=== PATIENT | male | born 1950 | race Caucasian/White ===

== ENCOUNTER → 2016-12-10 | Outpatient (CLI) | payer OTHER ==
[~2016-12-10] MED LIST: OMNIPAQUE 350 MG/ML, 150 ML BOTTLE ONE
== END | disposition home or self-care (01) ==
LOC: CFH 14:47
PROVIDERS: ATTEND Urology
DX: N20.0 Calculus of kidney (principal); N40.0 Benign prostatic hyperplasia without lower urinary tract symptoms; N32.9 Bladder disorder, unspecified; M85.88 Other specified disorders of bone density and structure, other site; M48.56XA Collapsed vertebra, not elsewhere classified, lumbar region, initial encounter for fracture; M48.54XA Collapsed vertebra, not elsewhere classified, thoracic region, initial encounter for fracture
CPT/HCPCS: 74178; 82565; Q9967

== ENCOUNTER 2018-03-10 05:40 | Day surgery (SDC) | payer OTHER ==
[~2018-03-10] VITALS: Ht 170.2 cm; Wt 78.7 kg
[~2018-03-10 05:40] MED LIST changes: +ASCO10004 PO; +ATOR10TA PO; +BENA20TA4 PO; +CALC-229 PO; +CHOL10003 PO; +CYAN1TAB29 PO; -OMNIPAQUE 350 MG/ML, 150 ML BOTTLE ONE; +PANT40TA5 PO; +TRAM50TA2 PO
[2018-03-10] MEDS ORDERED: LACTATED RINGERS 1,000 ML IV SCH (06:21)
[2018-03-10 06:25] VITALS: BP 155/92
[2018-03-10] MEDS ORDERED: BUPIVACAINE/PF-EPI 0.5% 1:200K ONE (06:46)
[2018-03-10] MEDS ORDERED: MIDAZOLAM 1 MG/ML, 2ML ONE (07:11)
[2018-03-10] MEDS ORDERED: ROCURONIUM 10MG/ML,5ML ONE (07:12)
[2018-03-10] MEDS ORDERED: FENTANYL PF 250 MCG/5ML ONE (07:12)
[2018-03-10] MEDS ORDERED: DEXAMETHASONE 4 MG/ML, 1ML ONE ×2 (07:13→07:14)
[2018-03-10] MEDS ORDERED: CEFAZOLIN 1,000 MG ONE ×2 (07:14)
[2018-03-10] MEDS ORDERED: WATER-INJECTION,STERILE 10 ML IV ONE (07:14)
[2018-03-10] MEDS ORDERED: PHENYLEPHRINE 10 MG/ML ONE (07:15)
[2018-03-10] MEDS ORDERED: PROPOFOL 10 MG/ML, 20ML ONE (07:26)
[2018-03-10] MEDS ORDERED: EPINEPHRINE 1 MG/ML, 1ML ONE (07:26)
[2018-03-10] MEDS ORDERED: ONDANSETRON 2MG/ML, 2ML ONE ×2 (07:57)
[2018-03-10] MEDS ORDERED: hydrALAzine 20 MG/ML, 1ML IV PRN (08:00)
[2018-03-10] MEDS ORDERED: HALOPERIDOL 5 MG/ML IV PRN (08:00)
[2018-03-10] MEDS ORDERED: ACETAMINOPHEN 325 MG TABLET PO PRN (08:00)
[2018-03-10] MEDS ORDERED: MEPERIDINE/PF 25MG/0.5ML IVPush PRN (08:00)
[2018-03-10] MEDS ORDERED: LABETALOL 5MG/ML, 20ML IV PRN (08:00)
[2018-03-10] MEDS ORDERED: PROMETHAZINE 25 MG/ML, 1ML IV PRN (08:00)
[2018-03-10] MEDS ORDERED: FENTANYL PF 100 MCG/2ML IV PRN (08:00)
[2018-03-10] MEDS ORDERED: OXYcodone 5 MG/5 ML ORAL.SOL UDC PO PRN (08:00)
[2018-03-10] MEDS ORDERED: HYDROmorphone 1 MG/ML, 1ML IV PRN (08:00)
[2018-03-10] MEDS ORDERED: KETOROLAC 30 MG/1 ML ONE (08:34)
[2018-03-10] MEDS ORDERED: OXYcodone 5 MG/5 ML ORAL.SOL UDC ONE (08:49)
[2018-03-10] MEDS ORDERED: ACETAMINOPHEN 650 MG/20.3 ML UDC ONE (08:49)
[2018-03-10] MEDS ORDERED: FENTANYL PF 100 MCG/2ML ONE (08:49)
[2018-03-11] MEDS ORDERED: CYAN25009 PO (16:57)
[2018-03-11] MEDS ORDERED: TRAZ-137 PO (16:57)
== END 2018-03-10 11:00 | disposition home or self-care (01) ==
LOC: OUT 05:40
PROVIDERS: ATTEND Surgery
DX: K40.30 Unilateral inguinal hernia, with obstruction, without gangrene, not specified as recurrent (principal); I10 Essential (primary) hypertension; F10.21 Alcohol dependence, in remission; K21.9 Gastro-esophageal reflux disease without esophagitis; Z98.890 Other specified postprocedural states; Z87.891 Personal history of nicotine dependence
CPT/HCPCS: 49507; C1781; J0171; J0690; J1100; J1885; J2250; J2370; J2405; J2704; J3010; J7120

== ENCOUNTER 2018-03-11 16:18 | Inpatient (IN) | payer OTHER ==
[~2018-03-11] VITALS: Ht 162.6 cm; Wt 74.9 kg
[2018-03-11] MEDS ORDERED: TRAZ-137 PO (16:57)
[2018-03-11] MEDS ORDERED: CYAN25009 PO (16:57)
[2018-03-11 16:59] LABS: BASOPHILS % (AUTO) 0 % (0-1); EOSINOPHILS % (AUTO) 0 % (1-7); LYMPHOCYTES # (AUTO) 0.74 x10^3/uL (1-3.4); LYMPHOCYTES % (AUTO) 9 % (22-44); MD NO; MEAN CORPUSCULAR VOLUME 94.3 fL (81-97); MEAN PLATELET VOLUME 6.9 fL (7.4-10.4); MONOCYTES # (AUTO) 0.66 x10^3/uL (0.2-0.8); MONOCYTES % (AUTO) 8 % (2-9); NEUTROPHILS # (AUTO) 7.01 x10^3/uL (1.8-6.8); NEUTROPHILS % (AUTO) 83 % (42-75); PLATELET COUNT 215 x10^3/uL (130-400); RED BLOOD COUNT 3.93 x10^6/uL (4.38-5.82); RED CELL DISTRIBUTION WIDTH 13.8 % (9.4-14.8)
[2018-03-11] MEDS ORDERED: SODIUM CHLORIDE 0.9% 1,000ML IVBOLUS ONE ×3 (17:00→20:00)
[2018-03-11] MEDS ORDERED: SODIUM CHLORIDE FLUSH 10ML SYR IVF ONE ×2 (17:00)
[2018-03-11 17:12] LABS: ALANINE AMINOTRANSFERASE 15 U/L (12-78); ALBUMIN 3.2 g/dL (3.4-5.0); ANION GAP 12 mmol/L (5-15); CALCIUM 8.6 mg/dL (8.5-10.1); CHLORIDE 106 mmol/L (98-107); CREATININE 1.46 mg/dL (0.7-1.3)
[2018-03-11 17:16] LABS: ALKALINE PHOSPHATASE 71 U/L (45-117); BILIRUBIN,TOTAL 0.9 mg/dL (0.2-1.0); TOTAL PROTEIN 6.9 g/dL (6.4-8.2)
[2018-03-11 17:26] LABS: CULTURE INDICATED? YES; MICROSCOPIC INDICATED
[2018-03-11] MEDS ORDERED: CEFTRIAXONE 1,000 MG in SODIUM CHLORIDE 0.9% 50 ML IVPB ONE (17:30)
[2018-03-11] MEDS ORDERED: LABETALOL 5MG/ML, 20ML IVPush PRN (19:30)
[2018-03-11] MEDS ORDERED: hydrALAzine 20 MG/ML, 1ML IVPush PRN (19:30)
[2018-03-11] MEDS ORDERED: OMNIPAQUE 350 MG/ML, 100ML BOTTLE ONE (19:30)
[2018-03-11] MEDS ORDERED: HYDROcodone/APAP 5/325 TABLET PO PRN (19:30)
[2018-03-11] MEDS ORDERED: SODIUM CHLORIDE 0.9%, 500ML IVBOLUS ONE (20:00)
[2018-03-11] MEDS ORDERED: AZITHROMYCIN 500 MG in SODIUM CHLORIDE 0.9% 250 ML IV SCH (20:00)
[2018-03-11 20:08] VITALS: BP 126/77
[2018-03-11] MEDS ORDERED: COP PO SCH (21:00)
[2018-03-11] MEDS ORDERED: BORON PO SCH (21:00)
[2018-03-11] MEDS ORDERED: MAG PO SCH (21:00)
[2018-03-11] MEDS ORDERED: [UNRECOGNIZED DRUG - OTHER] PO SCH (21:00)
[2018-03-11] MEDS ORDERED: CALC PO SCH (21:00)
[2018-03-11] MEDS ORDERED: MANG PO SCH (21:00)
[2018-03-11] MEDS ORDERED: D3 PO SCH (21:00)
[2018-03-11] MEDS: HEPARIN 5,000 UNITS/ML, 1ML SQ SCH (21:37)
[2018-03-11] MEDS: ATORVASTATIN 10 MG TABLET PO SCH (21:38)
[2018-03-11 21:49] VITALS: BP 132/71
[2018-03-11 23:26] LABS: TROPONIN I 0.024 ng/mL (0.000-0.045)
[2018-03-11 23:57] VITALS: BP 112/67
[2018-03-12] VITALS (7 sets, daily range): BP systolic 96–144; BP diastolic 60–74
[2018-03-12] MEDS ORDERED: TRAZODONE 50MG TABLET PO PRN (00:30)
[2018-03-12] MEDS: NS + 20MEQ KCL 1,000 ML IV SCH ×3 (02:03→18:05)
[2018-03-12 04:51] LABS: MEAN CORPUSCULAR HEMOGLOBIN 32.4 pg (27.5-34.5); MEAN CORPUSCULAR HGB CONC 34.2 g/dL (33.2-36.2); MEAN CORPUSCULAR VOLUME 94.6 fL (81-97); MEAN PLATELET VOLUME 7.3 fL (7.4-10.4); PLATELET COUNT 186 x10^3/uL (130-400); RED BLOOD COUNT 3.31 x10^6/uL (4.38-5.82); RED CELL DISTRIBUTION WIDTH 14.2 % (9.4-14.8)
[2018-03-12 04:58] LABS: ANION GAP 8 mmol/L (5-15); CALCIUM 7.8 mg/dL (8.5-10.1); CHLORIDE 111 mmol/L (98-107); CREATININE 0.66 mg/dL (0.7-1.3)
[2018-03-12] MEDS ORDERED: CEFTRIAXONE 2 GM in SODIUM CHLORIDE 0.9% 50 ML IV SCH (05:00)
[2018-03-12 05:17] LABS: MD YES
[2018-03-12 05:19] LABS: BAND#(MANUAL) 0.38 x10^3/uL; BANDS%(MANUAL) 4 % (0-7); LYMPH#(MANUAL) 1.22 x10^3/uL (1-3.4); LYMPHS% (MANUAL) 13 % (22-44); MONOS#(MANUAL) 0.75 x10^3/uL (0.3-2.7); MONOS% (MANUAL) 8 % (2-9); SEG#(MANUAL) 7.05 x10^3/uL (1.8-6.8); SEGS% (MANUAL) 75 % (42-75)
[2018-03-12 05:20] LABS: <PLATELET ESTIMATE> ADEQUATE; <PLT MORPHOLOGY> NORMAL PLT MORPH; <RBC MORPHOLOGY> NORMAL
[2018-03-12] MEDS: HEPARIN 5,000 UNITS/ML, 1ML SQ SCH ×3 (05:33→20:57)
[2018-03-12] MEDS: CYANOCOBALAMIN 1,000 MCG TABLET PO SCH (09:31)
[2018-03-12] MEDS: PANTOPROZOLE 40MG TABLET PO SCH (09:31)
[2018-03-12] MEDS ORDERED: CEFTRIAXONE 1,000 MG in SODIUM CHLORIDE 0.9% 50 ML IV SCH (17:30)
[2018-03-12] MEDS: ACETAMINOPHEN 325 MG TABLET PO PRN (18:09)
[2018-03-12] MEDS: CEFDINIR 300 MG CAPSULE PO SCH (20:57)
[2018-03-12] MEDS: ATORVASTATIN 10 MG TABLET PO SCH (20:57)
[2018-03-13] MEDS: NS + 20MEQ KCL 1,000 ML IV SCH (01:38)
[2018-03-13] MEDS: ACETAMINOPHEN 325 MG TABLET PO PRN ×3 (01:38→20:23)
[2018-03-13 01:43] VITALS: BP 142/81
[2018-03-13 03:59] LABS: BASOPHILS # (AUTO) 0.03 x10^3/uL (0-0.1); BASOPHILS % (AUTO) 0 % (0-1); EOSINOPHILS # (AUTO) 0.06 x10^3/uL (0-0.4); EOSINOPHILS % (AUTO) 1 % (1-7); LYMPHOCYTES # (AUTO) 1.03 x10^3/uL (1-3.4); LYMPHOCYTES % (AUTO) 11 % (22-44); MD NO; MEAN CORPUSCULAR HEMOGLOBIN 31.3 pg (27.5-34.5); MEAN CORPUSCULAR VOLUME 94.7 fL (81-97); MEAN PLATELET VOLUME 7.1 fL (7.4-10.4); MONOCYTES % (AUTO) 5 % (2-9); NEUTROPHILS # (AUTO) 8.19 x10^3/uL (1.8-6.8); NEUTROPHILS % (AUTO) 84 % (42-75); PLATELET COUNT 195 x10^3/uL (130-400); RED BLOOD COUNT 3.68 x10^6/uL (4.38-5.82); RED CELL DISTRIBUTION WIDTH 13.5 % (9.4-14.8)
[2018-03-13 04:06] LABS: ANION GAP 7 mmol/L (5-15); CALCIUM 8.4 mg/dL (8.5-10.1); CHLORIDE 111 mmol/L (98-107); CREATININE 0.52 mg/dL (0.7-1.3)
[2018-03-13] MEDS: HEPARIN 5,000 UNITS/ML, 1ML SQ SCH ×3 (05:23→20:24)
[2018-03-13 07:20] VITALS: BP 155/85
[2018-03-13] MEDS: CEFDINIR 300 MG CAPSULE PO SCH ×2 (08:50→20:23)
[2018-03-13] MEDS: PANTOPROZOLE 40MG TABLET PO SCH (08:50)
[2018-03-13] MEDS: AZITHROMYCIN 250 MG TABLET PO SCH (08:50)
[2018-03-13] MEDS: CYANOCOBALAMIN 1,000 MCG TABLET PO SCH (08:50)
[2018-03-13] MEDS: BENAZEPRIL 20 MG TABLET PO SCH (11:50)
[2018-03-13] MEDS ORDERED: POLYETHYLENE GLYCOL 17 GM PACKET NG PRN (13:00)
[2018-03-13 14:24] VITALS: BP 167/90
[2018-03-13 19:44] VITALS: BP 168/87
[2018-03-13] MEDS: ATORVASTATIN 10 MG TABLET PO SCH (20:24)
[2018-03-13 22:10] VITALS: BP 181/89
[2018-03-13 22:14] VITALS: BP 161/87
[2018-03-14 02:40] VITALS: BP 143/84
[2018-03-14] MEDS: ACETAMINOPHEN 325 MG TABLET PO PRN (03:06)
[2018-03-14 05:35] LABS: BASOPHILS # (AUTO) 0.02 x10^3/uL (0-0.1); BASOPHILS % (AUTO) 0 % (0-1); EOSINOPHILS # (AUTO) 0.06 x10^3/uL (0-0.4); EOSINOPHILS % (AUTO) 1 % (1-7); LYMPHOCYTES % (AUTO) 10 % (22-44); MD NO; MEAN CORPUSCULAR HEMOGLOBIN 32.2 pg (27.5-34.5); MEAN CORPUSCULAR HGB CONC 34.2 g/dL (33.2-36.2); MEAN CORPUSCULAR VOLUME 94.3 fL (81-97); MEAN PLATELET VOLUME 7.7 fL (7.4-10.4); MONOCYTES # (AUTO) 0.64 x10^3/uL (0.2-0.8); MONOCYTES % (AUTO) 8 % (2-9); NEUTROPHILS # (AUTO) 6.98 x10^3/uL (1.8-6.8); NEUTROPHILS % (AUTO) 81 % (42-75); PLATELET COUNT 204 x10^3/uL (130-400); RED CELL DISTRIBUTION WIDTH 13.5 % (9.4-14.8)
[2018-03-14] MEDS: HEPARIN 5,000 UNITS/ML, 1ML SQ SCH ×3 (05:43→21:21)
[2018-03-14 05:44] LABS: ANION GAP 11 mmol/L (5-15); CALCIUM 8.5 mg/dL (8.5-10.1); CHLORIDE 107 mmol/L (98-107); CREATININE 0.55 mg/dL (0.7-1.3)
[2018-03-14 07:20] VITALS: BP 150/88
[2018-03-14] MEDS: AZITHROMYCIN 250 MG TABLET PO SCH (07:55)
[2018-03-14] MEDS: PANTOPROZOLE 40MG TABLET PO SCH (07:55)
[2018-03-14] MEDS: CEFDINIR 300 MG CAPSULE PO SCH ×2 (07:55→21:21)
[2018-03-14] MEDS: CYANOCOBALAMIN 1,000 MCG TABLET PO SCH (07:56)
[2018-03-14] MEDS: BENAZEPRIL 20 MG TABLET PO SCH (07:57)
[2018-03-14 13:32] VITALS: BP 127/83
[2018-03-14 20:05] VITALS: BP 142/84
[2018-03-14] MEDS: ATORVASTATIN 10 MG TABLET PO SCH (21:21)
[2018-03-15 02:45] VITALS: BP 123/71
[2018-03-15] MEDS: ACETAMINOPHEN 325 MG TABLET PO PRN ×2 (03:39→20:25)
[2018-03-15] MEDS: HEPARIN 5,000 UNITS/ML, 1ML SQ SCH ×3 (05:02→20:15)
[2018-03-15 07:23] VITALS: BP 144/74
[2018-03-15] MEDS: BENAZEPRIL 20 MG TABLET PO SCH (08:35)
[2018-03-15] MEDS: CEFDINIR 300 MG CAPSULE PO SCH ×2 (08:35→20:14)
[2018-03-15] MEDS: AZITHROMYCIN 250 MG TABLET PO SCH (08:35)
[2018-03-15] MEDS: CYANOCOBALAMIN 1,000 MCG TABLET PO SCH (08:35)
[2018-03-15] MEDS: PANTOPROZOLE 40MG TABLET PO SCH (08:35)
[2018-03-15 13:18] VITALS: BP 130/82
[2018-03-15 19:29] VITALS: BP 131/78
[2018-03-15] MEDS: ATORVASTATIN 10 MG TABLET PO SCH (20:14)
[2018-03-16 01:24] VITALS: BP 134/78
[2018-03-16] MEDS: HEPARIN 5,000 UNITS/ML, 1ML SQ SCH (05:27)
[2018-03-16] MEDS: ACETAMINOPHEN 325 MG TABLET PO PRN (06:45)
[2018-03-16 07:01] VITALS: BP 115/81
[2018-03-16] MEDS: BENAZEPRIL 20 MG TABLET PO SCH (08:46)
[2018-03-16] MEDS: PANTOPROZOLE 40MG TABLET PO SCH (08:46)
[2018-03-16] MEDS: CEFDINIR 300 MG CAPSULE PO SCH (08:46)
[2018-03-16] MEDS: AZITHROMYCIN 250 MG TABLET PO SCH (08:47)
[2018-03-16] MEDS: CYANOCOBALAMIN 1,000 MCG TABLET PO SCH (08:47)
[2018-03-16] MEDS ORDERED: CEFD300C37 PO (12:40)
[2018-03-16] MEDS ORDERED: AZIT250T89 PO (12:40)
[2018-03-16 12:50] VITALS: BP 115/74
== END 2018-03-16 14:14 | disposition home or self-care (01) | DRG 871 ==
LOC: ED 17:14 → EDIP 17:15 → ED 17:28 → 3NE 18:03 → 4WST 19:54 → DCLOUNGE 03-16 13:59
PROVIDERS: ADMIT Internal Medicine; ATTEND Internal Medicine
DX: A41.9 Sepsis, unspecified organism (principal); J15.9 Unspecified bacterial pneumonia; N17.9 Acute kidney failure, unspecified; M48.54XA Collapsed vertebra, not elsewhere classified, thoracic region, initial encounter for fracture; K21.9 Gastro-esophageal reflux disease without esophagitis; E78.5 Hyperlipidemia, unspecified; I10 Essential (primary) hypertension; Z90.49 Acquired absence of other specified parts of digestive tract; Z85.818 Personal history of malignant neoplasm of other sites of lip, oral cavity, and pharynx; Z87.891 Personal history of nicotine dependence; R79.1 Abnormal coagulation profile; R09.02 Hypoxemia; Z82.49 Family history of ischemic heart disease and other diseases of the circulatory system; D50.0 Iron deficiency anemia secondary to blood loss (chronic)
CPT/HCPCS: 36415; 71045; 71275; 80048; 80053; 81001; 83605; 83735; 83880; 84100; 84134; 84145; 84484; 85025; 85379; 87040; 87086; 93005; 96374; 99291; G0378; J0456; J0696; J1644; J3480; Q9967; J7030; J7040; J7050